=== PATIENT | male | born 1990 | race African-American/Black ===

== ENCOUNTER 2019-09-02 21:14 | Emergency (ER) | payer OTHER ==
[~2019-09-02] VITALS: Ht 170.2 cm; Wt 72.6 kg
[2019-09-02 21:56] LABS: HEMATOCRIT 46.7 % (42.0-52.0); HEMOGLOBIN 15.8 gm/dL (14.0-18.0); MCH 30.6 pg (26.0-34.0); MCHC 33.8 g/dL (28.0-37.0); MCV 90.5 fL (80.0-100.0); RBC 5.16 mil/uL (4.50-6.00); RDW 13.1 % (10.5-14.5); WBC 10.2 thou/uL (4.0-11.0)
[2019-09-02 22:02] LABS: ANION GAP 8 mmol/L (7-16); BUN 6 mg/dL (7-18); CALCIUM 9.3 mg/dL (8.5-10.1); CHLORIDE 104 mmol/L (98-107); CO2 28 mmol/L (21-32); GLUCOSE 100 mg/dL (74-106); POTASSIUM 3.7 mmol/L (3.5-5.1); SODIUM 140 mmol/L (136-145)
[2019-09-02 22:11] LABS: TROPONIN-I <0.06 ng/mL (<0.06)
[2019-09-02] MEDS ORDERED: MOBIC7.5 MG PO (22:16)
[2019-09-02] MEDS ORDERED: CYCLOBENZAPRINE5 MG PO (22:16)
[2019-09-02 22:54] VITALS: BP 145/91
--- NOTE | 2019-09-03 08:37 | EKG ---
[address] [place] [address] ELECTROCARDIOGRAM REPORT Name: TEDDY CASTILLO Room #: [facility]P [facility]ad[facility]#: [id number] Admission: 09/02/19 Attend Phys: Discharge: 09/02/19 Date of : [birth year] Report #: [id number] THIS REPORT FOR: //name// 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: ASHA : 1990 Requested By: Shyanne Peterson Order Number: [id number] MD: Sebastian Gutierrez Measurements Intervals [place] Rate: 67 P: 46 [place]: 155 QRS: 44 QRSD: 89 T: 14 QT: 400 QTc: 423 Interpretive Statements Sinus rhythm Normal tracing No previous ECG available for comparison Electronically Signed On 09-03-2019 8:36:57 PERSONALIZATION SPECIALIST by Sebastian Gutierrez [email or web address] <ELECTRONICALLY SIGNED> By: Sebastian Gutierrez MD, [facility] 09/03/19 [id number] Sebastian Gutierrez MD, FACC /EPI
== END 2019-09-02 23:21 | disposition home or self-care (01) ==
LOC: ER 21:14
PROVIDERS: Physician Assistant
DX: R07.89 Other chest pain (principal); M54.2 Cervicalgia; M25.511 Pain in right shoulder; V89.2XXA Person injured in unspecified motor-vehicle accident, traffic, initial encounter; Y93.89 Activity, other specified; Y92.89 Other specified places as the place of occurrence of the external cause; Y99.8 Other external cause status